=== PATIENT | male | born 1980 | race African-American/Black ===

== ENCOUNTER 2021-09-20 02:57 | Emergency (ER) | payer SELFPAY ==
[~2021-09-20] VITALS: Ht 165.1 cm; Wt 80.0 kg
[2021-09-20 03:03] VITALS: BP 161/100
== END 2021-09-20 04:18 | disposition left against medical advice (07) ==
LOC: ER 03:46
DX: Z53.21 Procedure and treatment not carried out due to patient leaving prior to being seen by health care provider (principal); I49.9 Cardiac arrhythmia, unspecified
CPT/HCPCS: 93005

== ENCOUNTER 2021-09-20 11:57 | Emergency (ER) | payer SELFPAY ==
[~2021-09-20] VITALS: Ht 170.2 cm; Wt 77.2 kg
[2021-09-20 12:03] VITALS: BP 131/97
[2021-09-20] MEDS ORDERED: IBUPROFEN 400MG TABLET PO ONE (13:15)
== END 2021-09-20 13:34 | disposition home or self-care (01) ==
LOC: ER 11:57
DX: F41.9 Anxiety disorder, unspecified (principal)
CPT/HCPCS: 99282

== ENCOUNTER 2021-10-21 15:37 | Emergency (ER) | payer SELFPAY ==
[~2021-10-21] VITALS: Ht 167.6 cm; Wt 77.0 kg
[2021-10-21 16:06] VITALS: BP 129/88
== END 2021-10-21 20:32 | disposition home or self-care (01) ==
LOC: ER 15:37
DX: R51.9 Headache, unspecified (principal); R42 Dizziness and giddiness; F12.10 Cannabis abuse, uncomplicated
CPT/HCPCS: 93005; 99284